=== PATIENT | female | born 1995 | race African-American/Black ===

== ENCOUNTER 2022-06-09 12:07 | Observation (INO) | payer MEDICAID | END 2022-06-09 12:40 | disposition home or self-care (01) | LOC: 8 EST LDRP 12:07 | PROVIDERS: ADMIT Obstetrics & Gynecology; ATTEND Obstetrics & Gynecology | DX: O26.893 Other specified pregnancy related conditions, third trimester (principal); R21 Rash and other nonspecific skin eruption; Z3A.32 32 weeks gestation of pregnancy | CPT/HCPCS: 59025; G0378 ==